=== PATIENT | female | born 1970 | race Hispanic/Latino ===

== ENCOUNTER 2019-07-17 21:04 | Emergency (ER) | payer OTHER ==
[2019-07-17] MEDS ORDERED: SULFAMETHOX-TMP DS 800/160 TAB ONE (21:42)
[2019-07-17] MEDS ORDERED: CEPHALEXIN 500 MG CAPSULE ONE (21:42)
[2019-07-17] MEDS ORDERED: ACETAMINOPHEN EXTRA STRENGTH 500 MG TABLET ONE (21:42)
== END 2019-07-17 22:57 | disposition home or self-care (01) ==
LOC: EDH 21:04
DX: L73.9 Follicular disorder, unspecified (principal); I10 Essential (primary) hypertension; E11.9 Type 2 diabetes mellitus without complications; Z90.710 Acquired absence of both cervix and uterus